=== PATIENT | female | born 2000 | race Caucasian/White ===

== ENCOUNTER 2022-05-17 01:27 | Emergency (ER) | payer OTHER ==
[2022-05-17] MEDS ORDERED: Ondansetron PF 4 MG/2 ML Vial ONE (01:37)
== END 2022-05-17 05:30 | disposition home or self-care (01) ==
LOC: ERS 01:27
DX: F10.90 Alcohol use, unspecified, uncomplicated (principal); R41.3 Other amnesia
CPT/HCPCS: 70450; 72125; 96374; J2405